=== PATIENT | female | born 1985 | race Two or more races ===

== ENCOUNTER 2022-08-12 14:39 | Emergency (ER) | payer OTHER ==
[~2022-08-12] VITALS: Ht 160 cm; Wt 109.8 kg
[2022-08-12] MEDS ORDERED: HYDROCHLOROTHIA25 MG PO (14:48)
== END 2022-08-12 16:27 | disposition home or self-care (01) ==
LOC: ER 14:39
DX: S83.8X2A Sprain of other specified parts of left knee, initial encounter (principal); X58.XXXA Exposure to other specified factors, initial encounter; Y93.01 Activity, walking, marching and hiking; Y92.821 Forest as the place of occurrence of the external cause; Y99.8 Other external cause status; R20.0 Anesthesia of skin; Z88.0 Allergy status to penicillin